=== PATIENT | female | born 1955 | race American Indian/Alaskan Native ===

== ENCOUNTER 2024-06-29 20:06 | Emergency (ER) | payer MEDICARE, OTHER ==
[~2024-06-29] VITALS: Ht 162.6 cm; Wt 59.1 kg
[~2024-06-29 20:06] MED LIST: ACETAMINOPHEN325 M1 PO; ALLEGRA ALLERG180 MG PO; FLONASE ALLERG9.9 ML NS
[2024-06-29 20:27] LABS: BASE EXCESS, BLOOD GAS -3.1 mmol/L (-2-2); HCO3, BLOOD GAS 20.7 mmol/L (22-26); PCO2, BLOOD GAS 31.5 mmHg (35-45); PH, BLOOD GAS 7.42 (7.35-7.45); PO2, BLOOD GAS 103 mmHg (80-100); TOTAL CO2, BLOOD GAS 21.7
[2024-06-29 20:28] LABS: BASOPHILS 0.6 % (0-2); EOSINOPHILS 2.7 % (0-6); HEMATOCRIT 31.8 % (35.0-50.0); HEMOGLOBIN 11.2 g/dL (12.0-18.0); LYMPHOCYTES 31.5 % (24-44); MCH 33.3 (27-36); MCHC 35.1 g/dl (30-36); MCV 94.8 fl (81-99); MONOCYTES 5.1 % (0-12); NEUTROPHILS 60.1 % (39-80); PLATELET COUNT 257 K/uL (140-440); RBC 3.35 M/ul (4.3-5.7); RDW 13.7 (10.5-15.0)
[2024-06-29 20:29] LABS: O2 SATURATION, BLOOD GAS 99.3 % (95.0-100.0); OXYGEN RECEIVED, BLOOD GAS VENT
[2024-06-29 20:34] LABS: PARTIAL THROMBOPLASTIN TIME 31.6 Sec (22.9-41.3)
[2024-06-29 20:35] LABS: INR 1.03 (0.80-1.30); PROTIME 12.8 Sec (11.2-14.2)
[2024-06-29 20:41] LABS: ALBUMIN 3.4 g/dL (3.4-5.0); ANION GAP 19.1 (7-21); BILIRUBIN, TOTAL 0.4 ng/dL (0.2-1.0); BUN/CREATININE RATIO 16.9 (6.0-28.6); CALCIUM 8.3 mg/dL (8.5-10.1); CREATININE, SERUM 0.71 mg/dL (0.55-1.02); POTASSIUM 3.1 mmol/L (3.5-5.1); PROTEIN, TOTAL 6.8 g/dL (6.4-8.2)
[2024-06-29] MEDS ORDERED: Sodium Chloride 3% 500 ML IV ONE (21:15)
[2024-06-29 21:40] LABS: AMPHETAMINES, URINE NEGATIVE (NEGATIVE); BARBITURATES, URINE NEGATIVE (NEGATIVE); BENZODIAZEPINE, URINE POSITIVE (NEGATIVE); BUPRENORPHINE, URINE NEGATIVE (NEGATIVE); CANNABINOID, URINE POSITIVE (NEGATIVE); COCAINE, URINE NEGATIVE (NEGATIVE); ECSTASY, URINE NEGATIVE (NEGATIVE); FENTANYL, URINE NEGATIVE (NEGATIVE); METHADONE, URINE NEGATIVE (NEGATIVE); OPIATES, URINE NEGATIVE (NEGATIVE); OXYCODONE, URINE NEGATIVE (NEGATIVE); PHENCYCLIDINE, URINE NEGATIVE (NEGATIVE)
[2024-06-29] MEDS ORDERED: ETOMIDATE 40 MG/20 ML VIAL IV PRN (21:45)
[2024-06-29] MEDS ORDERED: ROCURONIUM BROMIDE 50 MG/5 ML SYR IV PRN (21:45)
[2024-06-29] MEDS ORDERED: NOREPINEPHRINE BITARTRATE 250 ML IV SCH (21:45)
[2024-06-29] MEDS ORDERED: levETIRAcetam 500 MG/5 ML VIAL IV ONE (21:45)
[2024-06-29] MEDS ORDERED: SODIUM CHLORIDE 0.9% 1,000 ML IV PRN (22:00)
[2024-06-30] MEDS ORDERED: niCARdipine HCL 50 MG in DEXTROSE 5% 250 ML IV SCH (01:00)
[2024-06-30] MEDS ORDERED: FENTANYL CITRATE-0.9 % NACL/PF 100 ML IV SCH (01:00)
[2024-06-30 01:10] VITALS: BP 127/71
--- NOTE | 2024-07-01 14:04 | EKG ---
[facility] [address] [facility] [place] [address] Signed Normal sinus rhythm Inferior infarct , age undetermined Abnormal ECG No previous ECGs available Confirmed by Ismael Elder MD ([id number]) on 07/01/2024 2:04:06 PM Electronically Signed By: ISMAEL ELDRE DO 07/01/24 140 PATIENT NAME: CHRISSIE ALICEA Electrocardiogram DATE OF : 51 PHYSICIAN: ISMAEL ELDER DO REPORT #: [id number] REPORT IS CONFIDENTIAL AND NOT TO BE RELEASED WITHOUT AUTHORIZATION
== END 2024-06-30 01:10 | disposition short-term general hospital (02) ==
LOC: ED 20:06
PROVIDERS: Family Medicine
DX: S06.5X3A Traumatic subdural hemorrhage with loss of consciousness of 1 hour to 5 hours 59 minutes, initial encounter (principal); S02.119A Unspecified fracture of occiput, initial encounter for closed fracture; S06.6X3A Traumatic subarachnoid hemorrhage with loss of consciousness of 1 hour to 5 hours 59 minutes, initial encounter; F17.200 Nicotine dependence, unspecified, uncomplicated; Z79.899 Other long term (current) drug therapy; W18.30XA Fall on same level, unspecified, initial encounter
CPT/HCPCS: 31500; 36415; 36556; 36600; 51702; 70450; 70496; 70498; 71045; 80053; 80307; 82803; 84484; 85025; 85610; 85730; 93005; 93010; 99291; G0480; J1953; J3010; J3490; J7060; J7131; Q9967